=== PATIENT | male | born 1955 | race Caucasian/White ===

== ENCOUNTER 2020-03-23 13:19 | Outpatient (CLI) | payer OTHER, SELFPAY | END 2020-03-23 13:20 | disposition home or self-care (01) | LOC: CHSLAB 13:22 | PROVIDERS: PCP Internal Medicine; Visit Provider Specialist | DX: C44.329 Squamous cell carcinoma of skin of other parts of face (principal) | CPT/HCPCS: 88305 ==

== ENCOUNTER 2021-03-08 08:37 | Outpatient (CLI) | payer MEDICARE, OTHER, SELFPAY | END 2021-03-08 08:38 | disposition home or self-care (01) | LOC: CHSLAB 08:43 | PROVIDERS: PCP Internal Medicine; Visit Provider Specialist | DX: L01.00 Impetigo, unspecified (principal) | CPT/HCPCS: 87070; 87077; 87186; 87205 ==

== ENCOUNTER 2021-08-30 09:17 | Outpatient (CLI) | payer MEDICARE, OTHER, SELFPAY | END 2021-08-30 09:18 | disposition home or self-care (01) | LOC: CHSOUTPT 09:22 | PROVIDERS: PCP Internal Medicine; Visit Provider Specialist | DX: C44.229 Squamous cell carcinoma of skin of left ear and external auricular canal (principal) | CPT/HCPCS: 88305 ==

== ENCOUNTER 2023-11-06 08:37 | Outpatient (CLI) | payer MEDICARE, SELFPAY | END 2023-11-06 08:38 | disposition home or self-care (01) | PROVIDERS: PCP Internal Medicine; Visit Provider Specialist | DX: C44.629 Squamous cell carcinoma of skin of left upper limb, including shoulder (principal) | CPT/HCPCS: 88305 ==

== ENCOUNTER 2024-05-06 08:53 | Outpatient (CLI) | payer MEDICARE, SELFPAY | END 2024-05-06 08:54 | disposition home or self-care (01) | PROVIDERS: PCP Internal Medicine; Visit Provider Specialist | DX: C44.311 Basal cell carcinoma of skin of nose (principal) | CPT/HCPCS: 88305 ==